=== PATIENT | female | born 1980 | race Caucasian/White ===

== ENCOUNTER 2019-07-24 19:19 | Emergency (ER) | payer OTHER, SELFPAY ==
[2019-07-24 19:44] VITALS: BP 132/84; PULSE 98; RESP 18; TEMP 37.3; O2SAT 99
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
== END 2019-07-24 20:21 | disposition home or self-care (01) ==
PROVIDERS: Emergency Provider Nurse Practitioner
DX: M54.2 Cervicalgia (principal); M54.6 Pain in thoracic spine; M25.512 Pain in left shoulder; M79.622 Pain in left upper arm; V43.52XA Car driver injured in collision with other type car in traffic accident, initial encounter; F17.200 Nicotine dependence, unspecified, uncomplicated
CPT/HCPCS: 99213; G0463

== ENCOUNTER 2019-11-17 19:05 | Emergency (ER) | payer OTHER, SELFPAY ==
[2019-11-17 19:16] VITALS: BP 151/106; PULSE 109; RESP 16; TEMP 36.1; O2SAT 99
--- NOTE | 2019-11-17 19:29 | ED.SKABFB ---
HPI - Skin/Abscess/Foreign Bdy General Chief complaint: Extremity Injury, Upper Stated complaint: numbness /swollen right hand Time Seen by Provider: 11/17/19 19:20 Source: patient and RN notes reviewed Mode of arrival: ambulatory Limitations: no limitations History of Present Illness HPI narrative: Patient presents today complaining of pain and swelling to her right hand since yesterday. She shot up methamphetamine on her posterior right forearm 3 weeks ago and had some tingling in her 5th finger after blowing the vein. States this was her first and lanced episode of shooting up meth. The pain and swelling in her hand did not begin until 2 days ago. She has been applying ice. She has not tried any medication for symptoms prior to arrival. States pain radiates to the axilla. History of MRSA. MD complaint: discoloration Related Data Allergies Allergy/AdvReac Type Severity Reaction Status Date / Time magnesium sulfate Allergy Mild Verified 11/16/17 23:50 metoclopramide Allergy Mild irritability, Verified 11/16/17 23:50 pshycotic episode haloperidol Allergy Unknown Verified 04/29/10 09:33 CIPROFLOXACIN HCL Allergy Mild Uncoded 11/16/17 23:50 MAGNESIUM OXIDE Allergy Mild Uncoded 11/16/17 23:50 CHANTEX Allergy Unknown Uncoded 07/26/13 16:42 EAR DROPS AdvReac Unknown Uncoded 07/26/13 16:42 Review of Systems Review of Systems: Narrative: CONSTITUTIONAL: Denies body aches, fever, chills, or sweats. EYES: Denies visual changes, redness, or discharge. ENT: Denies rhinorrhea, congestion, sore throat, or otalgia. CARDIOVASCULAR: Denies chest pain, palpitations, or edema. RESPIRATORY: Denies cough or dyspnea. GASTROINTESTINAL: Denies abdominal pain, nausea, vomiting, or diarrhea. GENITOURINARY: Denies dysuria or hematuria. SKIN: Denies rash, itching, or wounds. MUSCULOSKELETAL: Denies back pain, or myalgia. Right hand redness and swelling NEUROLOGIC: Denies headache, numbness, tingling, or weakness. PSYCH: Denies depression or anxiety. [facility] Surgical History Surgical History (Updated 07/24/19 @ 19:34 by JEANETTE Ackerman) Hx of hysterectomy Hx of tubal ligation Family History Family History (Updated 10/29/15 @ 23:19 by DOCTOR UNKNOWN) Grandparent Family history of heart disease in male family member before age 55 Diabetes mellitus Other Family history of malignant neoplasm of breast Social History Social History (Updated 11/17/19 @ 19:36 by Emilie Allen, [facility], ) Smoking status: Current every day smoker Alcohol intake: current Substance use type: IV drugs and methamphetamine Other substance usage details: tried meth once, October 2019. Gender identity (if verbalized by the patient): Female Comments At time of signature, I have reviewed and agree with nursing past medical, surgical, social and family history unless otherwise noted. Please see nursing chart for further information. There is no relevant family history pertinent to the presenting complaint Exam Narrative: Exam Narrative: GENERAL: Well-appearing, well-nourished, and in no acute distress. HEAD: Normocephalic, atraumatic. EYES: EOMI. No redness or drainage. Conjunctivae normal. ENT: Mucous membranes pink and moist. NECK: Normal AROM. CHEST: No respiratory distress. EXTREMITIES: Moderate edema to the dorsum of the right hand, overlying metacarpals 3 through 5, including fingers 4 and 5, with mild erythema. Distal sensation intact in all fingers. Capillary refill normal. Radial pulse normal. Decreased range of motion of fingers 4 and 5 due to swelling and pain. No track duron obviously noted. Patient has few very superficial linear abrasions to her fingers. SKIN: Warm, dry, no rash. Capillary refill normal. Normal skin turgor. NEURO: No focal deficits. Alert and oriented x3. Gait steady. PSYCH: Normal affect. No signs of depression or anxiety. Course Vital Signs Vital signs: Vital Signs Temperatur
== END 2019-11-17 19:33 | disposition home or self-care (01) ==
PROVIDERS: Emergency Provider Nurse Practitioner; PCP Orthopaedic Surgery
DX: L03.011 Cellulitis of right finger (principal); F17.200 Nicotine dependence, unspecified, uncomplicated; Z86.14 Personal history of Methicillin resistant Staphylococcus aureus infection
CPT/HCPCS: 99213; G0463

== ENCOUNTER 2020-11-09 11:39 | Emergency (ER) | payer OTHER, SELFPAY ==
[2020-11-09 12:01] VITALS: BP 140/73; PULSE 90; RESP 16; TEMP 36.6; O2SAT 100
[2020-11-09 12:29] LABS: Basophils Absolute Auto 0.1 K/mm3 (0.0-0.1); Basophils Percent Auto 1.1 % (0.2-1.2); Eosinophils Absolute Auto 0.2 K/mm3 (0-0.3); Eosinophils Percent Auto 2.2 % (0-4.4); Hematocrit 39.2 % (37.0-47.0); Hemoglobin 12.9 g/dL (12.0-15.0); Immature Granulocyte Absolute 0.03 K/mm3 (0.00-0.031); Immature Granulocyte Percent A 0.3 % (0-0.5); Lymphocytes Absolute Auto 3.07 K/mm3 (0.9-3.2); Lymphocytes Percent Auto 33.9 % (18.3-44.2); Mean Corpuscular HGB Conc 32.9 g/dl (32-36); Mean Corpuscular Hemoglobin 27.6 pg (26-34); Mean Corpuscular Volume 83.9 fl (80-100); Monocytes Absolute Auto 0.7 K/mm3 (0.1-0.6); Monocytes Percent Auto 7.8 % (2.6-8.5); Neutrophils Absolute Auto 4.9 K/mm3 (1.3-6.7); Neutrophils Percent Auto 54.7 % (45.5-73.1); Platelet Count Result 352 k/mm3 (150-375); Red Blood Count 4.67 M/mm3 (4.2-5.4); Red Cell Distribution Width 13.6 % (11.5-14.5); White Blood Count 9.1 K/mm3 (4.5-10.0)
[2020-11-09 12:41] LABS: Alanine Aminotransferase 22 U/L (4-35); Albumin Level 3.8 g/dL (3.5-5.1); Alkaline Phosphatase 82 U/L (38-126); Anion Gap 6 mmol/L (8-16); Aspartate Amino Transferase 24 U/L (14-36); Bilirubin,Total 0.3 mg/dL (0.2-1.3); Blood Urea Nitrogen 12 mg/dL (7-17); Calcium 9.1 mg/dL (8.4-10.2); Carbon Dioxide 19 mmol/L (22-30); Chloride 110 mmol/L (98-107); Estimated CRCL calculation 125 ml/min; Estimated Glomerular Filt Rate > 60; Glucose 117 mg/dL (65-110); Lipase 192 U/L (23-300); Potassium 4.4 mmol/L (3.4-5.0); Sodium 135 mmol/L (137-145)
[2020-11-09 14:27] LABS: Add Urine Microscopic? YES; Appearance Urine Cloudy (Clear); Bilirubin Urine Negative (Negative); Blood Urine Negative (Negative); Color Urine Yellow (Yellow); Glucose Urine UA Negative (Negative); Ketones Urine Negative (Negative); Leukocyte Esterase Ur 3+ LEU/UL (Negative); Mucus Urine Rare /lpf; Nitrate Urine Negative (Negative); Protein Urine Negative (Negative); RBC Urine 21-50 /hpf (0-2); Specific Grav Ur 1.015 (1.001-1.035); Squamous Epithelial Cell Urine Rare /hpf (Few); Urobilinogen Urine Negative mg/dL (<2.0); WBC Urine >75 /hpf
--- NOTE | 2020-11-09 16:00 | PC.NURSE ---
went to call pt into a room and not found in [facility].
== END 2020-11-09 16:48 | disposition left against medical advice (07) ==
PROVIDERS: Emergency Provider Emergency Medicine
DX: Z53.21 Procedure and treatment not carried out due to patient leaving prior to being seen by health care provider (principal); M54.9 Dorsalgia, unspecified
CPT/HCPCS: 36415; 80053; 81001; 81025; 83690; 85025; 87077; 87086; 87088; 87186; 99199

== ENCOUNTER 2022-04-01 14:39 | Emergency (ER) | payer OTHER, SELFPAY ==
[2022-04-01 15:17] VITALS: BP 137/90; PULSE 78; RESP 20; TEMP 36.7; O2SAT 98
== END 2022-04-01 16:07 | disposition left against medical advice (07) ==
PROVIDERS: Emergency Provider Internal Medicine Hematology & Oncology; PCP Physician Assistant
DX: Z53.21 Procedure and treatment not carried out due to patient leaving prior to being seen by health care provider (principal)
CPT/HCPCS: 99199

== ENCOUNTER 2022-04-01 15:57 | Emergency (ER) | payer OTHER, SELFPAY ==
--- NOTE | ~2022-04-01 | XR_ITS ---
EXAMINATION: XR chest 2V Exam Date/Time: 04/01/2022 16:26 SEXUAL ABUSE COUNSELLOR HISTORY: chest pain SINCE March, WAS ON METH FOR 10 YRS. Comparison: 10/08/2011. RESULT: Lines, tubes, and devices: None. Lungs and pleura: Clear. Cardiomediastinal silhouette: Stable. Other: No acute osseous or upper abdominal finding. IMPRESSION: No acute cardiopulmonary process. Reviewed, dictated and finalized at location K. AL ABUSE COUNSELLOR
--- NOTE | 2022-04-01 15:59 | ECG_ITS ---
Measurements Intervals [place] Rate: 69 P: 52 UT: 168 QRS: 52 QRSD: 85 T: 55 QT: 409 QTc: 438 Interpretive Statements SINUS RHYTHM WITH SINUS ARRHYTHMIA BORDERLINE R WAVE PROGRESSION, ANTERIOR LEADS BASELINE WANDER- I, II BORDERLINE ECG NO PREVIOUS ECG AVAILABLE FOR COMPARISON Electronically Signed On 04-02-2022 15:16:24 [employer] by Chepe Conn D.O.
[2022-04-01 16:00] VITALS: BP 156/88; PULSE 67; RESP 18; TEMP 36.7; O2SAT 99
--- NOTE | 2022-04-01 16:24 | ED.CHESTPAIN ---
HPI - Chest Pain General Chief Complaint: Chest Pain <Ara Yañez PA-C - Last Filed: 04/01/22 18:18> Stated Complaint: chest pain <Ara Yañez PA-C - Last Filed: 04/01/22 18:18> Time Seen by Provider: 04/01/22 16:11 <Ara Yañez PA-C - Last Filed: 04/01/22 18:18> History of Present Illness HPI narrative: Patient is a 41-year-old female here for evaluation of chest pain over the past 4 months. Patient states the pain has described as a pressure in the center of her chest. She has not attempted any medicine for her pain. States that her pain came on after she quit meth, which she smoked and injected occasionally for >20 yrs. She also notes a 40 pound weight gain over the past 4 months and dyspnea on exertion. No fevers, chills, rashes, syncope, leg swelling. States that she just feels swollen all over. She has never had a cardiac work-up. Attempted to get into her primary care doctor but states that he had a mental breakdown and cannot get into see him. <GHADA Del Angel Last Filed: 04/01/22 18:18> Related Data Allergies/Adverse Reactions: Allergies Allergy/AdvReac Type Severity Reaction Status Date / Time magnesium sulfate Allergy Mild Hives Verified 04/01/22 16:25 metoclopramide Allergy Mild irritability, Verified 11/16/17 23:50 pshycotic episode haloperidol Allergy Unknown Swelling Verified 04/01/22 16:25 of Lip/Tongue/Throat MAGNESIUM OXIDE Allergy Mild Unknown Uncoded 04/01/22 16:25 CHANTEX Allergy Unknown Nervousness Uncoded 04/01/22 16:25 <GHADA Del Angel Last Filed: 04/01/22 18:18> Review of Systems Review of Systems: Gen.: Denies fevers or chills Eyes: Denies eye pain or visual change ENT: Denies congestion Respiratory: Denies shortness of breath or cough CV: Reports chest pain GI: Denies abdominal pain nausea, emesis or diarrhea denies burning, urgency, frequency or hematuria Musculoskeletal: Denies back pain or muscle pain Neuro: Denies numbness, tingling, weakness or focal weakness Skin: Denies rash Except as documented, all other systems reviewed and negative <Ara Yañez PA-C - Last Filed: 04/01/22 18:18> [facility] Surgical History Surgical History: Surgical History Hx of hysterectomy Hx of tubal ligation <Ara Yañez PA-C - Last Filed: 04/01/22 18:18> Family History Family History: Family History (Updated 10/29/15 @ 23:19 by DOCTOR UNKNOWN) Grandparent Family history of heart disease in male family member before age 55 Diabetes mellitus Other Family history of malignant neoplasm of breast <Ara Yañez PA-C - Last Filed: 04/01/22 18:18> Social History Social History: Social History (Updated 11/17/19 @ 19:36 by Emilie Allen, [facility], ) Smoking status: Current every day smoker Alcohol intake: current Substance use type: IV drugs and methamphetamine Other substance usage details: tried meth once, October 2019. Gender identity (if verbalized by the patient): Female <Ara Yañez PA-C - Last Filed: 04/01/22 18:18> Exam Narrative: APPEARANCE: Well appearing, no pain in distress, well-nourished. Head: Normocephalic and atraumatic. EYES: PERRLA/EOMI, conjunctivae clear NOSE: No nasal drainage EARS: External ear normal in appearance THROAT: Oropharynx is clear. Mucous membranes are moist. NECK: Supple. No adenopathy, no masses. RESPIRATORY: Airway patent, respirations nonlabored. Clear to auscultation bilaterally, no rales, rhonchi, wheezing. CARDIOVASCULAR: Regular rate and rhythm without murmurs, rubs, or gallops. ABDOMINAL: Normoactive bowel sounds. Soft, nontender, nondistended. No rebound tenderness or guarding. MUSCULOSKELETAL: Extremities are warm and well-perfused. Moves all extremities well. No edema. NEURO: Normal speech. No focal neurologic
[2022-04-01 16:33] LABS: Basophils Absolute Auto 0.1 K/mm3 (0.0-0.1); Eosinophils Absolute Auto 0.3 K/mm3 (0-0.3); Hematocrit 42.7 % (37.0-47.0); Hemoglobin 14.1 g/dL (12.0-15.0); Immature Granulocyte Absolute 0.05 K/mm3 (0.00-0.031); Immature Granulocyte Percent A 0.4 % (0-0.5); Lymphocytes Absolute Auto 4.28 K/mm3 (0.9-3.2); Lymphocytes Percent Auto 34.3 % (18.3-44.2); Mean Corpuscular Hemoglobin 27.2 pg (26-34); Mean Corpuscular Volume 82.3 fl (80-100); Mean Platelet Volume 8.9 fl (7.4-10.4); Monocytes Absolute Auto 0.9 K/mm3 (0.1-0.6); Monocytes Percent Auto 7.1 % (2.6-8.5); Neutrophils Absolute Auto 6.9 K/mm3 (1.3-6.7); Neutrophils Percent Auto 55.2 % (45.5-73.1); Platelet Count Result 430 k/mm3 (150-375); Red Blood Count 5.19 M/mm3 (4.2-5.4); Red Cell Distribution Width 14.6 % (11.5-14.5); White Blood Count 12.5 K/mm3 (4.5-10.0)
[2022-04-01] MEDS: ASPIRIN 81 MG CHEWABLE TABLET 324 MG PO (16:39)
[2022-04-01 16:43] VITALS: PULSE 67
[2022-04-01 16:45] LABS: Alanine Aminotransferase 28 U/L (6-35); Albumin Level 4.6 g/dL (3.5-5.1); Alkaline Phosphatase 87 U/L (38-126); Anion Gap 10 mmol/L (8-16); Aspartate Amino Transferase 28 U/L (14-36); Bilirubin,Total 0.6 mg/dL (0.2-1.3); Blood Urea Nitrogen 11 mg/dL (7-17); Carbon Dioxide 22 mmol/L (22-30); Chloride 106 mmol/L (98-107); Estimated CRCL calculation 111 ml/min; Estimated Glomerular Filt Rate > 60; Glucose 106 mg/dL (65-110); Lipase 112 U/L (23-300); Potassium 4.1 mmol/L (3.4-5.0); Sodium 138 mmol/L (137-145)
[2022-04-01 16:46] LABS: Ovalocytes 1+ (NORMAL); Platelet Estimate Increased (Adequate)
[2022-04-01 16:47] LABS: Atypical Lymphocytes Present; Schistocytes None Seen (NORMAL)
[2022-04-01 16:48] LABS: Prothrombin Time 12.4 Seconds (11.1-14.7)
[2022-04-01 16:54] LABS: D Dimer 0.36 ug/mL (<0.48)
[2022-04-01 16:57] LABS: NT Pro B Type Natriuretic Pept 35 pg/mL (5-100); Troponin I < 0.012 ng/mL (0.000-0.034)
[2022-04-01 17:15] LABS: Amphetamine Screen Urine Negative (Negative); Barbiturate Screen Urine Negative (Negative); Benzodiazepines Screen Urine Negative (Negative); Cannabinoid Screen Urine Positive (Negative); Cocaine Screen Urine Negative (Negative); Methadone Screen Urine Negative (Negative); Opiate Screen Urine Negative (Negative); Phencyclidine Screen Urine Negative (Negative)
[2022-04-01 17:18] LABS: CRP 0.8 mg/dL (<1.0)
[2022-04-01 17:30] VITALS: BP 170/87; PULSE 71; RESP 18; O2SAT 100
[2022-04-01 17:36] LABS: Erythrocyte Sedimentation Rate 18 mm/hr (0-20)
[2022-04-01 18:00] VITALS: BP 155/100; PULSE 64; RESP 16; O2SAT 98
[2022-04-01 18:26] LABS: Influenza A QL RT-PCR Negative (Negative); Influenza B QL RT-PCR Negative (Negative); SARS-CoV-2 RNA PCR Negative
== END 2022-04-01 19:01 | disposition home or self-care (01) ==
PROVIDERS: Emergency Medicine; Physician Assistant; Emergency Provider Emergency Medicine; PCP Physician Assistant
DX: R07.9 Chest pain, unspecified (principal); Z20.822 Contact with and (suspected) exposure to COVID-19
CPT/HCPCS: 36415; 71046; 80053; 80307; 83690; 83880; 84484; 85025; 85380; 85610; 85652; 85730; 86140; 87636; 93005; 99284; A9270

== ENCOUNTER 2022-05-10 10:29 | Emergency (ER) | payer OTHER, SELFPAY ==
--- NOTE | 2022-05-10 10:40 | ED.FEMALEGU ---
HPI - Female Genitourinary General Stated complaint: kidney pain Time Seen by Provider: 05/10/22 10:45 Source: patient Mode of arrival: ambulatory Limitations: no limitations History of Present Illness HPI Narrative: Leah is a 42-year-old female patient presenting to the clinic today with complaints of right-sided flank pain x1 week. She reports that the pain is constant and feels as though it is there is a pressure. Is having some increase in urination but has been drinking a lot a water to flush her kidneys. History of frequent urinary tract infections. Denies any known fever or chills. Has had a tubal ligation in the past and denies any chance of . Last bowel movement was this morning-has regular bowel movements every day. No nausea, vomiting, or diarrhea. Related Data Home Medications Medication Instructions Recorded Confirmed aspirin 81 mg chewable tablet 81 mg PO DAILY 05/10/22 05/10/22 Allergies Allergy/AdvReac Type Severity Reaction Status Date / Time magnesium sulfate Allergy Mild Hives Verified 05/10/22 10:42 metoclopramide Allergy Mild irritability, Verified 05/10/22 10:42 pshycotic episode haloperidol Allergy Unknown Swelling Verified 05/10/22 10:42 of Lip/Tongue/Throat MAGNESIUM OXIDE Allergy Mild Unknown Uncoded 05/10/22 10:42 CHANTEX Allergy Unknown Nervousness Uncoded 05/10/22 10:42 Review of Systems Review of Systems: Pertinent positives per HPI. Patient denies any fever, chills, rash, headache, visual changes, dizziness, cough, runny nose, sore throat, shortness of breath, chest pain, palpitations, nausea, vomiting, diarrhea, constipation, abdominal pain. [facility] Surgical History Surgical History Hx of hysterectomy Hx of tubal ligation Family History Family History (Updated 10/29/15 @ 23:19 by DOCTOR UNKNOWN) Grandparent Family history of heart disease in male family member before age 55 Diabetes mellitus Other Family history of malignant neoplasm of breast Social History Social History (Updated 11/17/19 @ 19:36 by Emilie Allen, [facility], ) Smoking status: Current every day smoker Alcohol intake: current Substance use type: IV drugs and methamphetamine Other substance usage details: tried meth once, October 2019. Gender identity (if verbalized by the patient): Female Comments At the time of my signature, I reviewed and agree with the nursing past medical, surgical, social, and family history. There is no relevant family history pertinent to the patient complaint. Course Course Emergency Course: Portions of this record may have been created with voice recognition software. Level of Care: Express Care Visit Vital Signs Vital signs: Vital signs reviewed Transfer Transfered to: [place] Transportation: Other (Private car) Transfer rationale: Right flank pain Accepting physician: Kat- physician's marketing support assistant/Dr. Mina Transfer comments: Transfer via private car MDM - Female Genitourinary MDM Narrative Medical decision making narrative: At the time of visit patient is resting comfortably on the exam table. Currently rating her pain a 4 in 10. Urinalysis was performed and was negative for any sign of infection, glucose, blood, or protein. Specific gravity was 1.025. Differential diagnosis is were reviewed with the patient-muscle strain, kidney stone, ureteral stone, and constipation. Offered to send the patient to the ER for further evaluation-labs and other diagnostic testing as needed. Patient agrees to transfer to the ER. Contacted Kat-physician's assistance at [facility] and she accepts patient for transfer. Patient will be transferred via private car Differential Diagnosis Differential diagnosis: Likely urinary tract infection (Ureteral stone, kidney stone, muscle strain, constipation) Discharge Plan Discharge Clinical Impression: Acute right flank pain
[2022-05-10 10:43] VITALS: BP 135/77; PULSE 104; RESP 18; TEMP 37.2; O2SAT 99
== END 2022-05-10 11:06 | disposition short-term general hospital (02) ==
LOC: EXPCOLL 10:33
PROVIDERS: Emergency Provider Nurse Practitioner Family
DX: R10.9 Unspecified abdominal pain (principal); F17.200 Nicotine dependence, unspecified, uncomplicated; Z79.82 Long term (current) use of aspirin
CPT/HCPCS: 36415; 72132; 74177; 80053; 81003; 81025; 83690; 85025; 96365; 96375; 99212; 99284; G0463; J0131; J1885; Q9967

== ENCOUNTER 2022-05-10 11:24 | Emergency (ER) | payer OTHER, SELFPAY ==
--- NOTE | ~2022-05-10 | CT_ITS ---
EXAMINATION: CT abd pelvis lumbar w con DATE: 05/10/2022 14:35 INDICATION: Right-sided low back pain. Flank pain. Epigastric abdominal pain. TECHNIQUE: Computed tomography (CT) of the abdomen and pelvis and lumbar spine was performed with 100 mL Omnipaque 350 intravenous contrast. Automated exposure control and iterative reconstruction techn ique were employed. The dose-length product was 1258.01 mGy-cm. COMPARISON: None FINDINGS: CT ABDOMEN AND PELVIS: The visualized portions of the lung bases demonstrate minimal atelectasis. No pleural effusion. The heart size is normal. No pericardial effusion. There is diffuse hepatic steatos is. The gallbladder, spleen, pancreas, adrenal glands, and left kidney are normal. There is a [address] in right kidney. There is focal cortical volume loss of right kidney. There are no dilated loops o f bowel. The appendix is normal. There are no pathologically enlarged lymph nodes. There is no free i ntraperitoneal fluid. CT LUMBAR SPINE: Bone alignment is normal. There are Schmorl's nodes at most levels. Intervertebral d isc heights are normal. The following disc levels are specifically discussed: L1-L2: The disc does not extend beyond the endplate margin. There is mild bilateral facet joint osteo arthritis. There is no neural foraminal stenosis. There is no central canal stenosis. L2-L3: The disc does not extend beyond the endplate margin. There is mild bilateral facet joint osteo arthritis. There is no neural foraminal stenosis. There is no central canal stenosis. L3-L4: The disc does not extend beyond the endplate margin. There is mild bilateral facet joint osteo arthritis. There is no neural foraminal stenosis. There is no central canal stenosis. L4-L5: The disc is bulging. There is severe bilateral facet joint osteoarthritis. There is mild bilat eral neural foraminal stenosis. There is mild central canal stenosis. L5-S1: The disc does not extend beyond the endplate margin. There is severe bilateral facet joint ost eoarthritis. There is no neural foraminal stenosis. There is no central canal stenosis. IMPRESSION: 1. Diffuse hepatic steatosis. 2. Mild lumbar spondylosis. Reviewed, dictated and finalized at location A. AT MONITORING ANALYST
[2022-05-10 11:40] VITALS: BP 127/89; PULSE 87; RESP 18; TEMP 36.4; O2SAT 100
[2022-05-10 12:19] LABS: Appearance Urine Clear (Clear); Bilirubin Urine Negative (Negative); Blood Urine Negative (Negative); Color Urine Yellow (Yellow); Glucose Urine UA Negative (Negative); Ketones Urine Negative (Negative); Leukocyte Esterase Ur Negative LEU/UL (Negative); Nitrate Urine Negative (Negative); Protein Urine Negative (Negative); Specific Grav Ur 1.025 (1.001-1.035); Urobilinogen Urine 0.2 mg/dL (<2.0)
[2022-05-10 12:25] LABS: Add Urine Microscopic? NO
--- NOTE | 2022-05-10 12:33 | ED.GENADULT ---
HPI - General Adult General Chief complaint: Urogenital-Female Stated complaint: sent by urgent care- poss kidney stone Time Seen by Provider: 05/10/22 11:32 Source: patient Mode of arrival: ambulatory Limitations: no limitations History of Present Illness HPI narrative: Patient is a 42-year-old female who presents to the ED with report of R low back pain. Patient reports having pain in her R low back/flank region intermittent for the past 1 year, but current episode started 1.5 weeks ago. Patient reports having similar pain in the past with kidney infections. She has been drinking more water and tried taking ASA yesterday morning, but denied any improvement of pain. No radiation of pain to abdomen or down RLE. Pain worse with movement. Patient denies any N/V/D, constipation, fevers, dysuria, hematuria, CP, SOB. Related Data Home Medications Medication Instructions Recorded Confirmed aspirin 81 mg chewable tablet 81 mg PO DAILY 05/10/22 05/10/22 Allergies Allergy/AdvReac Type Severity Reaction Status Date / Time magnesium sulfate Allergy Mild Hives Verified 05/10/22 11:50 metoclopramide Allergy Mild irritability, Verified 05/10/22 11:50 pshycotic episode haloperidol Allergy Unknown Swelling Verified 05/10/22 11:50 of Lip/Tongue/Throat MAGNESIUM OXIDE Allergy Mild Unknown Uncoded 05/10/22 10:42 CHANTEX Allergy Unknown Nervousness Uncoded 05/10/22 10:42 Review of Systems Review of Systems: CONSTITUTIONAL: Denies fever, chills, or sweats. CARDIOVASCULAR: Denies chest pain. RESPIRATORY: Denies dyspnea. GASTROINTESTINAL: Denies abdominal pain, nausea, vomiting, or diarrhea. GENITOURINARY: Denies dysuria or hematuria. MUSCULOSKELETAL: See HPI. NEUROLOGIC: Denies headache, numbness, or weakness. All systems reviewed & are unremarkable except as noted in HPI and below PMFSH Past Medical History Medical History No pertinent past medical history Surgical History Surgical History Hx of hysterectomy Hx of tubal ligation Family History Family History Grandparent Family history of heart disease in male family member before age 55 Diabetes mellitus Other Family history of malignant neoplasm of breast Social History Social History Smoking status: Current every day smoker Alcohol intake: current Substance use type: IV drugs and methamphetamine Other substance usage details: tried meth once, October 2019. Gender identity (if verbalized by the patient): Female Exam Narrative: GENERAL: Well appearing, obese, non-toxic, in no acute distress. HEAD: Normocephalic, atraumatic. NECK: Supple. No adenopathy, no masses. RESPIRATORY: Airway patent, respirations nonlabored. Clear to auscultation bilaterally, no rales, rhonchi, wheezing. CARDIOVASCULAR: Regular rate and rhythm without murmurs, rubs, or gallops. Peripheral pulses 2+ and equal bilaterally. ABDOMINAL: Soft, no tenderness throughout abdomen, nondistended, no hepatosplenomegaly. Normoactive BS. MUSCULOSKELETAL: Moves all extremities. Strength/ROM intact without gross deformities. Mild paraspinal muscle tenderness in R lumbosacral region. No significant midline lumbar spinal tenderness. No palpable deformities or step offs. SKIN: Warm, dry, normal color. No rashes. NEURO: A&O X3. Speech clear. Cranial nerves II-XII grossly intact. Steady gait. No ataxic movements. PSYCHIATRIC: Appropriate mood and affect. Normal interaction. Course Vital Signs Vital signs: Vital Signs Temperature 97.6 F 05/10/22 11:40 Pulse Rate 87 05/10/22 11:40 Respiratory Rate 18 05/10/22 11:40 Blood Pressure 127/89 05/10/22 11:40 Pulse Oximetry 100 05/10/22 11:40 Oxygen Delivery Room Air 05/10/22 11:40 Te
[2022-05-10 12:35] LABS: Basophils Absolute Auto 0.1 K/mm3 (0.0-0.1); Basophils Percent Auto 1.2 % (0.2-1.2); Eosinophils Absolute Auto 0.2 K/mm3 (0-0.3); Eosinophils Percent Auto 2.2 % (0-4.4); Hematocrit 42.3 % (37.0-47.0); Immature Granulocyte Absolute 0.02 K/mm3 (0.00-0.031); Immature Granulocyte Percent A 0.2 % (0-0.5); Lymphocytes Percent Auto 38.3 % (18.3-44.2); Mean Corpuscular HGB Conc 33.1 g/dl (32-36); Mean Corpuscular Hemoglobin 27.5 pg (26-34); Mean Corpuscular Volume 82.9 fl (80-100); Mean Platelet Volume 9.1 fl (7.4-10.4); Monocytes Absolute Auto 0.6 K/mm3 (0.1-0.6); Monocytes Percent Auto 6.2 % (2.6-8.5); Neutrophils Absolute Auto 4.9 K/mm3 (1.3-6.7); Neutrophils Percent Auto 51.9 % (45.5-73.1); Platelet Count Result 362 k/mm3 (150-375); Red Cell Distribution Width 14.1 % (11.5-14.5); White Blood Count 9.4 K/mm3 (4.5-10.0)
[2022-05-10 12:44] LABS: Alanine Aminotransferase 33 U/L (6-35); Albumin Level 4.5 g/dL (3.5-5.1); Alkaline Phosphatase 70 U/L (38-126); Anion Gap 8 mmol/L (8-16); Aspartate Amino Transferase 26 U/L (14-36); Bilirubin,Total 0.5 mg/dL (0.2-1.3); Blood Urea Nitrogen 11 mg/dL (7-17); Calcium 9.3 mg/dL (8.4-10.2); Carbon Dioxide 23 mmol/L (22-30); Chloride 103 mmol/L (98-107); Estimated CRCL calculation 110 ml/min; Estimated Glomerular Filt Rate > 60; Glucose 104 mg/dL (65-110); Lipase 167 U/L (23-300); Potassium 4.1 mmol/L (3.4-5.0); Sodium 134 mmol/L (137-145)
[2022-05-10] MEDS: KETOROLAC 30 MG/ML VIAL (*BKC) IV PUSH (15:14)
[2022-05-10 15:18] VITALS: BP 148/80; PULSE 60; RESP 20; O2SAT 99
== END 2022-05-10 15:18 | disposition home or self-care (01) ==
PROVIDERS: Emergency Provider Physician Assistant
DX: M54.50 Low back pain, unspecified (principal); K76.0 Fatty (change of) liver, not elsewhere classified
CPT/HCPCS: 36415; 72132; 74177; 80053; 81003; 81025; 83690; 85025; 96365; 96375; 99284; J0131; J1885; Q9967

== ENCOUNTER 2023-04-30 15:29 | Emergency (ER) | payer OTHER, SELFPAY ==
[2023-04-30 15:38] VITALS: BP 129/57; PULSE 64; RESP 16; TEMP 36.6; O2SAT 100
--- NOTE | 2023-04-30 15:59 | ED.GENADULT ---
HPI - General Adult General Chief complaint: Urogenital-Female Stated complaint: UTI Time Seen by Provider: 04/30/23 15:55 Source: patient and RN notes reviewed Mode of arrival: ambulatory Limitations: no limitations History of Present Illness HPI narrative: Patient presents today to obtain a urinalysis. She is scheduled tomorrow for left knee surgery for meniscus and ACL repair. She was answering some preoperative questions today over the phone and was asked if she had any frequency when she urinates. Patient states she always has frequency with urination since she had her child and they told her she needed to have a urinalysis to rule out infection before her surgery tomorrow. Related Data Home Medications Medication Instructions Recorded Confirmed cholecalciferol (vitamin D3) 50 50 mcg DIRECTED 04/30/23 04/30/23 mcg (2,000 unit) tablet Allergies Allergy/AdvReac Type Severity Reaction Status Date / Time magnesium sulfate Allergy Mild Hives Verified 05/10/22 11:50 metoclopramide Allergy Mild irritability, Verified 05/10/22 11:50 pshycotic episode haloperidol Allergy Unknown Swelling Verified 05/10/22 11:50 of Lip/Tongue/Throat MAGNESIUM OXIDE Allergy Mild Unknown Uncoded 05/10/22 10:42 CHANTEX Allergy Unknown Nervousness Uncoded 05/10/22 10:42 Review of Systems Review of Systems: CONSTITUTIONAL: Denies body aches, fever, chills, or sweats. EYES: Denies visual changes, redness, or discharge. ENT: Denies rhinorrhea, congestion, sore throat, or otalgia. CARDIOVASCULAR: Denies chest pain, palpitations, or edema. RESPIRATORY: Denies cough or dyspnea. GASTROINTESTINAL: Denies abdominal pain, nausea, vomiting, or diarrhea. GENITOURINARY: Denies dysuria or hematuria.+ urinary frequency SKIN: Denies rash, itching, or wounds. MUSCULOSKELETAL: Denies back pain, joint pain, or myalgia. NEUROLOGIC: Denies headache, numbness, tingling, or weakness. PSYCH: Denies depression or anxiety. 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 Gender identity (if verbalized by the patient): Female Comments At time of signature, I have reviewed and agree with nursing past medical, surgical, social and family history unless otherwise noted. Please see nursing chart for further information. There is no relevant family history pertinent to the presenting complaint Exam Narrative: GENERAL: Well-appearing, well-nourished, and in no acute distress. HEAD: Normocephalic, atraumatic. EYES: EOMI. No redness or drainage. Conjunctivae normal. ENT: Mucous membranes pink and moist. NECK: Normal AROM. CHEST: No respiratory distress. EXTREMITIES: Normal range of motion. No edema. SKIN: Warm, dry, no rash. Capillary refill normal. Normal skin turgor. NEURO: No focal deficits. Alert and oriented x3. Gait steady. PSYCH: Normal affect. No signs of depression or anxiety. Course Course Level of Care: Express Care Visit Vital Signs Vital signs: Vital Signs Temperature 98 F 04/30/23 15:38 Pulse Rate 64 04/30/23 15:38 Respiratory Rate 16 04/30/23 15:38 Blood Pressure 129/57 L 04/30/23 15:38 Pulse Oximetry 100 04/30/23 15:38 Oxygen Delivery Rose
== END 2023-04-30 16:08 | disposition home or self-care (01) ==
PROVIDERS: Emergency Provider Nurse Practitioner
DX: R35.0 Frequency of micturition (principal)
CPT/HCPCS: 81003; 99212; G0463

== ENCOUNTER 2024-06-18 12:49 | Emergency (ER) | payer OTHER, SELFPAY ==
[2024-06-18 13:05] VITALS: BP 134/81; PULSE 75; RESP 18; TEMP 36.4; O2SAT 99
--- NOTE | 2024-06-18 13:20 | ED.SKABFB ---
HPI - Skin/Abscess/Foreign Bdy General Chief complaint: Skin/Abscess/Foreign Body Stated complaint: Ears Irritation/Insect Bite Time Seen by Provider: 06/18/24 13:11 Source: patient and RN notes reviewed Mode of arrival: ambulatory Limitations: no limitations History of Present Illness HPI narrative: Patient presents today complaining of a bee sting to the right upper arm since last night. Reports pain but no itching. She has tried Aleve without relief. She is also complaining of right ear pain intermittently over the past month with decreased hearing. She has tried no [id number] treatment prior to arrival. She has a PCP appointment next month Related Data Allergies Allergy/AdvReac Type Severity Reaction Status Date / Time rosuvastatin Allergy Intermediate Blister Verified 06/18/24 13:12 magnesium sulfate Allergy Mild Hives Verified 06/18/24 12:53 metoclopramide Allergy Mild irritability, Verified 06/18/24 12:53 pshycotic episode haloperidol Allergy Unknown Swelling Verified 06/18/24 12:53 of Lip/Tongue/Throat MAGNESIUM OXIDE Allergy Mild Unknown Uncoded 06/18/24 12:53 CHANTEX Allergy Unknown Nervousness Uncoded 06/18/24 12:53 Review of Systems Review of Systems: CONSTITUTIONAL: Denies body aches, fever, chills, or sweats. EYES: Denies visual changes, redness, or discharge. ENT: Denies rhinorrhea, congestion. + right ear pain with decreased hearing, sore throat CARDIOVASCULAR: Denies chest pain, palpitations, or edema. RESPIRATORY: Denies cough or dyspnea. GASTROINTESTINAL: Denies abdominal pain, nausea, vomiting, or diarrhea. GENITOURINARY: Denies dysuria or hematuria. SKIN: + bee sting. MUSCULOSKELETAL: Denies back pain, joint pain, or myalgia. NEUROLOGIC: Denies headache, numbness, tingling, or weakness. PSYCH: Denies depression or anxiety. [facility] Past Medical History Medical History No pertinent past medical history Surgical History Surgical History Hx of tubal ligation Hx of hysterectomy Family History Family History Grandparent Family history of heart disease in male family member before age 55 Diabetes mellitus Other Family history of malignant neoplasm of breast Social History Social History Smoking status: Current every day smoker Alcohol intake: current Substance use type: IV drugs and methamphetamine Other substance usage details: tried meth once, October 2019. Gender identity (if verbalized by the patient): Female Comments At time of signature, I have reviewed and agree with nursing past medical, surgical, social and family history unless otherwise noted. Please see nursing chart for further information. There is no relevant family history pertinent to the presenting complaint Exam Narrative: GENERAL: Well-appearing, well-nourished, and in no acute distress. HEAD: Normocephalic, atraumatic. EYES: EOMI. No redness or drainage. Conjunctivae normal. ENT: Mucous membranes pink and moist. Nares clear. No rhinorrhea. Left TM normal. Right TM with mild middle ear effusion without evidence of bacterial infection. Throat normal. Uvula midline. NECK: Normal AROM. Supple. No lymphadenopathy. CHEST: No respiratory distress. EXTREMITIES: Normal range of motion. No edema. SKIN: Warm, dry, no rash. Capillary refill normal. Normal skin turgor. 15 x 8 cm area of erythema surrounding tiny pustule to the right anterior upper arm. No induration or edema noted. NEURO: No focal deficits. Alert and oriented x3. Gait steady. PSYCH: Normal affect. No signs of depression or anxiety. Course Course Level of Care: Express Care Visit MDM - Skin/Abscess/Foreign Bdy MDM Narrative Medical decision making narrative: Patient has an allergic reaction to the insect sting to the right arm as well as serous effusion the right middle ear. Recommend starting an antihistamine the arm, an intranasal steroid from the ear. Also prescribed short course of prednisone to help with both. Anticipatory guidance given. Differential Diagnosis Differential diagnosis: Likely abscess of skin or subcutaneous tissue, urticaria, cellulitis, insect bites and other (Allergic reaction to insect, otitis media, otitis externa, ruptured TM, serous otitis) Critical Care Time Critical Care Time Critical Care Time: No Discharge Plan Discharge Clinical Impression: Allergic reaction to insect sting, Acute serous otitis media of right ear Patient Disposition: Home, Self-Care Condition: Stable Instructions: Insect Bite or Sting (ED), Fluid In The Ear (Serous Otitis Media) (ED) Additional Instructions: Please take the prednisone as directed. Start an antihistamine such as Benadryl, Zyrtec, Claritin, or Yane. Also consider starting an intranasal steroid such as Flonase. Follow-up with your PCP as scheduled if symptoms do not improve. Your blood pressure was elevated above 120/80 today at Urgent Care. This puts you above the threshold for follow up. Please schedule a followup visit with your personal physician as soon as possible, for further evaluation and treatment. Even blood pressure exceeding 120/80 may indicate pre-hypertension. Patient Language: Cuban Prescriptions: New prednisone 20 mg tablet 40 mg PO DAILY 3 Days Qty: 6 0RF Follow-up/Referrals: Kayden Porter MD [Primary Care Provider] - Time of Disposition: 13:25
== END 2024-06-18 13:30 | disposition home or self-care (01) ==
PROVIDERS: Emergency Provider Nurse Practitioner; PCP Emergency Medicine
DX: T63.441A Toxic effect of venom of bees, accidental (unintentional), initial encounter (principal); H65.01 Acute serous otitis media, right ear; F17.200 Nicotine dependence, unspecified, uncomplicated
CPT/HCPCS: 99213; G0463

== ENCOUNTER 2025-02-17 17:30 | Emergency (ER) | payer OTHER, SELFPAY ==
[2025-02-17 17:42] VITALS: BP 144/86; PULSE 83; RESP 16; TEMP 37.1; O2SAT 98
--- NOTE | 2025-02-17 18:00 | ED.WOUNDLAC ---
HPI - Wound/Laceration General Chief Complaint: Wound/Laceration Stated Complaint: Wound Check Time Seen by Provider: 02/17/25 18:05 Source: patient and RN notes reviewed Mode of arrival: ambulatory Limitations: no limitations History of Present Illness HPI narrative: [age] year old female presents concern for a burn on her left breast that is still present and now has screen drainage. She reports she burned her breast with a curling want 3-4 weeks ago, reports that at developed a thick scab, the scab fell off and there was green drainage underneath. She reports general left breast pain. She denies general breast swelling, redness, warmth Related Data Allergies Allergy/AdvReac Type Severity Reaction Status Date / Time rosuvastatin Allergy Intermediate Blister Verified 06/18/24 13:12 magnesium sulfate Allergy Mild Hives Verified 06/18/24 12:53 metoclopramide Allergy Mild irritability, Verified 06/18/24 12:53 pshycotic episode haloperidol Allergy Unknown Swelling Verified 06/18/24 12:53 of Lip/Tongue/Throat MAGNESIUM OXIDE Allergy Mild Unknown Uncoded 06/18/24 12:53 CHANTEX Allergy Unknown Nervousness Uncoded 06/18/24 12:53 Review of Systems Review of Systems: CONSTITUTIONAL: Denies malaise, chills, sweats, or fever. SKIN: Reports burn on her left breast with green drainage MUSCULOSKELETAL: Reports generalized left breast pain. Denies myalgia. All systems reviewed & are unremarkable except as noted in HPI and below PMFSH Past Medical History Medical History No pertinent past medical history Surgical History Surgical History Hx of tubal ligation Hx of hysterectomy Family History Family History Grandparent Family history of heart disease in male family member before age 55 Diabetes mellitus Other Family history of malignant neoplasm of breast Social History Social History (Reviewed 06/18/24 @ 13:21 by Emilie Allen, DENIAL RESOLUTION SPECIALIST, [employer]) Smoking status: Current every day smoker Alcohol intake: current Substance use type: IV drugs and methamphetamine Other substance usage details: tried meth once, October 2019. Gender identity (if verbalized by the patient): Female Comments At time of signature, agree with nursing past medical, surgical, social and family history. There is no relevant family history pertinent to the presenting complaint Exam Narrative: GENERAL: Well-appearing, well-nourished, and in no acute distress. HEAD: Normocephalic, atraumatic. EYES: PERRLA, conjunctivae clear, and EOMI. ENT: Mucous membranes moist. NECK: Supple. No lymphadenopathy CHEST: Clear to auscultation. No respiratory distress. HEART: Regular rate and rhythm. SKIN: Warm, dry. 2.5 cm area of erythema, induration with purulence Center, no fluctuation noted to the left lower lateral breast without generalized breast erythema, induration or warmth NEURO: Alert and oriented x3. PSYCH: Normal mood and affect Course Course Emergency Course: Patient is aware of diagnosis, understands and agrees to treatment plan. Anticipatory guidance given. Patient agrees to follow-up as directed and is aware of reasons to seek care at the emergency department. Portions of this record may have been created with voice recognition software Level of Care: Express Care Visit Vital Signs Vital signs: Vital Signs Temperature 98.7 F 02/17/25 17:42 Pulse Rate 83 02/17/25 17:42 Respiratory Rate 16 02/17/25 17:42 Blood Pressure 144/86 H 02/17/25 17:42 Pulse Oximetry 98 02/17/25 17:42 Oxygen Delivery Room Air 02/17/25 17:42 Temperature 98.7 F 02/17/25 17:42 Pulse Rate 83 02/17/25 17:42 Respiratory Rate 16 02/17/25 17:42 Blood Pressure 144/86 H 02/17/25 17:42 Pulse Oximetry 98 02/17/25 17:42 Oxygen Delivery Room Air 02/17/25 17:42 Reviewed. MDM - Wound/Laceration MDM Narrative Medical decision making narrative: I evaluated this patient in the express care. History is obtained from patient who is an independent historian and physical exam was performed.? Available medical records were reviewed. ? Exam findings and relevant testing show no acute concerns or changes; patient is non-toxic appearing and is in no distress. ? Differential diagnosis and treatment plan were discussed with the patient. Patient agrees with discussion and after shared medical decision making agrees with plan of care. All questions were answered to the patient's satisfaction. Patient is appropriate for outpatient treatment and follow-up. Critical Care Time Critical Care Time Critical Care Time: No Discharge Plan Discharge Clinical Impression: Infected wound Patient Disposition: Home Condition: Stable Instructions: Wound Infection (ED) Additional Instructions: Please follow up with your Primary Care Doctor within 48-72 hours - call for an appointment. Rest and elevate affected area; apply moist heat 3-4 times daily for 10-15 minutes. Take Motrin 600mg every 8 hours with food for pain. Please take Antibiotics as directed. If you experience any worsening redness, swelling, streaking (red lines), fever or chills please go to the ER Patient Language: Irish Prescriptions: New sulfamethoxazole-trimethoprim 800-160 mg tablet 1 tablet PO Q12H 7 Days Qty: 14 0RF mupirocin 2 % ointment 1 applic topical BID 7 Days Qty: 22 0RF Follow-up/Referrals: Kayden Porter MD [Primary Care Provider, [facility]] Time of Disposition: 18:04
== END 2025-02-17 18:10 | disposition home or self-care (01) ==
PROVIDERS: Emergency Provider Nurse Practitioner; PCP Emergency Medicine
DX: S21.002A Unspecified open wound of left breast, initial encounter (principal); L08.9 Local infection of the skin and subcutaneous tissue, unspecified; X19.XXXA Contact with other heat and hot substances, initial encounter; F17.200 Nicotine dependence, unspecified, uncomplicated
CPT/HCPCS: 99213; G0463